=== PATIENT | male | born 1990 | race Caucasian/White ===

== ENCOUNTER 2021-03-17 08:45 | Outpatient (CLI) | payer OTHER, SELFPAY ==
--- NOTE | 2021-03-23 08:36 | WPDHOLTEREM ---
Holter/Event Monitor Holter/Event Monitor Date of procedure: 03/17/21 Holter/Event Procedure: 48 Hr Holter Monitor Indications: Syncope Conclusion: 1. 48 hour holter monitor on 03/17/21. 2. Underlying rhythm is sinus rhythm. HR range 46-112 bpm; average HR 68 bpm. 3. There are 6 premature supraventricular complexes. No supraventricular tachycardia. 4. There are 5 premature ventricular complexes. No ventricular tachycardia. 5. No sinoatrial or atrioventricular blocks. No significant pauses greater than 2 seconds. 6. Patient reports symptoms of lightheadedness and feeling worried which demonstrate sinus rhythm, HR range 70-89 bpm.
== END 2021-03-17 08:46 | disposition home or self-care (01) ==
LOC: CHSCARD 08:47
PROVIDERS: PCP Family Medicine; Visit Provider Family Medicine
DX: R55 Syncope and collapse (principal)
CPT/HCPCS: 93225; 93226

== ENCOUNTER 2021-03-23 14:04 | Outpatient (CLI) | payer OTHER, SELFPAY ==
--- NOTE | 2021-03-23 14:10 | ECHO_ITS ---
Patient Info Name: Isaac Rust Age: 31 years : 1990 Gender: Male Ht: 69 in Wt: 160 lbs BSA: 1.88 m2 HR: 57 bpm BP: 122 / 66 mmHg Technical Quality: Good Exam Date: 03/23/2021 2:57 PM Exam Location: [facility] Patient Status: Outpatient Admit Date: 03/23/2021 Staff Ordering Physician: Chip Strauss DO Undercover Operator: Phyllis Kang Attending Provider: Chip Strauss DO Referring Physician: Carlos A KOVACS; Exam Type: CA echo doppler color flow Study Info Indications R55 - Syncope and collapse Complete two-dimensional, color flow and Doppler transthoracic echocardiogram is performed. Strain analysis performed. Summary 1. Complete two-dimensional, color flow and Doppler transthoracic echocardiogram is performed. 2. Left ventricular chamber dimension is mildly enlarged. 3. Left ventricular systolic function is normal, estimated at 60-65%. 4. The left ventricular diastolic function is normal. 5. E/e' 5 is not elevated. 6. Global longitudinal strain is normal at -19.3%. 7. There is trace pulmonic regurgitation. Left Ventricle E/e' 5 is not elevated. Global longitudinal strain is normal at -19.3%. Left ventricular chamber dimension is mildly enlarged. Left ventricular systolic function is normal, estimated at 60-65%. The left ventricular diastolic function is normal. Right Ventricle Right ventricular systolic function is normal and with normal TAPSE 3.2 cm. Right ventricular chamber dimension is normal. Left Atria Left atrial chamber dimension is normal. Right Atria Right atrial chamber dimension is normal. Aortic Valve The aortic valve is trileaflet. There is no aortic valve stenosis. There is no aortic valve regurgitation. Pulmonic Valve There is trace pulmonic regurgitation. Mitral Valve There is no mitral valve stenosis. There is no mitral valve regurgitation. Tricuspid Valve There is no tricuspid valve regurgitation. Pericardium/Pleural There is no pericardial effusion. Inferior Vena Cava Normal inferior vena cava with >50% collapse upon inspiration consistent with normal right atrial pressure, 5 mmHg. Aorta The aortic root size at the sinus of Valsalva is normal. Left Ventricular Outflow Tract Name Value Normal LVOT 2D LVOT Diameter 2.0 cm LVOT Doppler LVOT Peak Velocity 102 cm/s LVOT Peak Gradient 4 mmHg LVOT Mean Gradient 3 mmHg LVOT VTI 20 cm LVOT VTI/AV VTI Ratio 1.0 LVOT Stroke Volume 67 ml Mitral Valve Name Value Normal MV Doppler MV Decel Hooker 223 cm/s2 MV PHT 88 ms MV Area (PHT) 2.5 cm2 4.0-5.0 MV Regurg
== END 2021-03-23 14:05 | disposition home or self-care (01) ==
PROVIDERS: PCP Family Medicine; Visit Provider Family Medicine
DX: Z86.79 Personal history of other diseases of the circulatory system (principal); R55 Syncope and collapse
CPT/HCPCS: 93306

== ENCOUNTER 2024-09-13 10:05 | Outpatient (CLI) | payer OTHER, SELFPAY ==
--- OUTSIDE RECORDS SUMMARY | 2024-09-13 10:11 | XMS_ITS | Clinical Summary ---
Author Organization [facility] Address [facility] [place] [address] Care Team Providers Care Almond Paste Molder Name Role Phone None, Provider MD Primary Care Provider Unavaila ble Allergies No known active allergies Medications No known medications Active Problems Problem Noted Date Diagnosed Date BMI 25.0-25.9,adult 04/24/2019 Cigarette nicotine dependence without complicati on 04/24/2019 Immunizations Immunization Administration Dates Next Due Tdap (Adacel) 07/29/2019 Family History Medical History Relation Comments None Father None Mother Relation Status Comments Father Alive Mother Alive Social History Tobacco Use Types Packs/Day Years Used Date Smoking Tobacco: Every Day Cigarettes 1 22.6 Started: 2002 Smokeless Tobacco: Current Chew Tobacco Cessation:Ready to Q uit: No; Counseling Given: Yes Comments:every once in a while Alcohol Use Standard Drinks/Week Comments Never 0 (1 standard drink = 0.6 oz pur e alcohol) AUDIT-C Answer Date Recorded Frequency of Alcohol Consumption Never 04/24/2019 Average Number of Drinks Not on file 020 Frequency of Binge Drinking Not on file 04/2019 Sex and Gender Information Value Date Recorded Sex Assigned at Male 06/20/2019 10:32 AM CDT Legal Sex Male 4:35 PM CDT Gender Identity Male 06/20/2019 10:32 AM CDT Sexual Orientation Straight 06/20/2019 10 :32 AM CDT Last Filed Vital Signs Vital Sign Reading Time Taken Comments Blood Pressure 132/79 01/21/2023 4:01 PM 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 Pulse 71 01/21/2023 4:01 PM 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 Temperature 36.8 C (98.2 F) 01/21/2023 4:01 PM 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 Respiratory Rate 19 01/21/2023 4:01 PM 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 Oxygen Saturation 97% 01/21/2023 4:01 PM 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 Inhaled Oxygen Concentration - - Weight 90.7 kg (200 lb) 01/21/2023 1:51 PM 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 Height 172.7 cm (5' 8) 01/21/2023 1:51 PM 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 Body Mass Index 30.41 01/21/2023 1:51 PM 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 Plan of Treatment Health Maintenance Due Date Last Done Comments Hepatitis C 2007 Pneumococcal Vaccine: Pediatrics (0 to 5 Years) and At-Risk Patients (6 to 49 Years) (1 of 2 - PCV) 01/08/2008 HPV Vaccines (1 - 3-dose SCDM series) 01/08/2016 Annual Physical 04/23/2020 04/24/2019 COVID-19 Vaccine ( - 2023- season) 2023 DTaP, Tdap and Td Vaccines (7 - Td or Tdap) 07/28/2029 07/29/2019, 06/11/2004, 06/21/1994, Additional history exists Hepatitis B Vaccines Completed 06/02/1999, 12/30/1998, 11/25/1998 Meningococcal B Vaccine Aged Out No l onger eligible based on patient's age to complete this topic Meningococcal Vaccine Aged Out No julieta ean eligible based on patient's age to complete this topic RSV Immunizations Under 20 Months Aged Out No longer eligible based on patient's age to complete this topic Insurance [employer] Care Teams Almond Paste Molder Relationship Specialty Start Date End Date None, Provider, PCP - General UNKNOWN PHYSICIAN SPECIALTY 01/21/23
[2024-09-13 10:23] LABS: Hematocrit 41.0 % (40.0-54.0); Hemoglobin 14.0 g/dL (14.0-18.0); Immature Granulocyte Percent A 0.3 % (0.0-0.0); Lymphocytes Absolute Auto 1.94 K/mm3 (1.10-4.50); Mean Corpuscular HGB Conc 34.1 g/dL (32-36); Mean Corpuscular Hemoglobin 30.6 pg (27.0-31.0); Mean Corpuscular Volume 89.5 fL (78.0-102.0); Nucleated Red Blood Cells Absolute Auto 0.05 K/mm3 (0.00-0.00); Nucleated Red Blood Cells Perc 0.8 % (0-0.0); Platelet Count Result 205 K/mm3 (150-420); Red Blood Count 4.58 M/mm3 (4.70-6.10); White Blood Count 6.1 K/mm3 (4.8-10.8)
[2024-09-13 11:30] LABS: Alanine Aminotransferase 30 U/L (6-50); Albumin Level 4.5 g/dL (3.5-5.1); Alkaline Phosphatase 55 U/L (38-126); Anion Gap 11 mmol/L (4-12); Aspartate Amino Transferase 27 U/L (17-59); Bilirubin,Total 0.5 mg/dL (0.2-1.3); Blood Urea Nitrogen 17 mg/dL (9-20); Calcium 9.2 mg/dL (8.4-10.2); Carbon Dioxide 25 mmol/L (22-30); Chloride 104 mmol/L (98-107); Estimated Glomerular Filt Rate > 60; Glucose 131 mg/dL (65-110); Osmolality Calculated 293 mOsm/kg (285-295); Potassium 4.1 mmol/L (3.4-5.0); Sodium 140 mmol/L (137-145); Total Protein 6.8 g/dL (6.3-8.2)
[2024-09-13 11:46] LABS: HIV 1 P24 AG Negative (Negative); HIV 1/2 AB Negative (Negative)
== END 2024-09-13 10:06 | disposition home or self-care (01) ==
PROVIDERS: PCP Family Medicine; Visit Provider Family Medicine
DX: R55 Syncope and collapse (principal); Z77.21 Contact with and (suspected) exposure to potentially hazardous body fluids
CPT/HCPCS: 36415; 80053; 85025; 87806

== ENCOUNTER 2024-09-20 10:01 | Outpatient (RCR) | payer OTHER, SELFPAY ==
--- NOTE | 2024-09-20 10:57 | OPREHPOC ---
Outpatient Therapy Plan of Care This is a Multidisciplinary Plan of Care that may contain components documented by all disciplines (PT, OT, and ST.) PT Problem 1 PT Problem #1 Knowledge Deficit PT Goal 1 Goal / Goal Update independent and compliant with HEP Target Visit 6 PT Problem 2 PT Problem #2 Pain PT Goal 1 Goal / Goal Update decrease pain at worst to 1/10 or less in the last week Target Visit 12 PT Problem 3 PT Problem #3 Impaired Strength PT Goal 1 Goal / Goal Update 5/5 bilateral hip strength 4/5 or better overall core strength Target Visit 12 PT Problem 4 PT Problem #4 Impaired Functional Mobility PT Goal 1 Goal / Goal Update 100% active lumbar rom without pain. 20 degrees or less tightness of the bilateral hamstrings. Target Visit 12 PT Problem 5 PT Problem #5 Impaired Functional Mobility PT Goal 1 Goal / Goal Update oswestry to display 10% or less functional deficits. patient to perform safe lifting of 50lbs from floor to waist without increased pain patient to transfer 50lbs from floor to table without increased pain x10 bouts Target Visit 12
--- NOTE | 2024-09-20 10:57 | PTOPEVAL1 ---
Assessment and note entered by JT File, PT Evaluation Information Assessment Status Evaluation ICD-10 Condition Codes (PT) Pain in low back M54.50 Onset 09/13/24 Subjective Information patient reports he has pain in the lower back. he had an injury 6 years ago lifting and throwing 100lbs logs. he reports he then possibly got any injury to the lower back after a chiropractic treatment. he reports for the past 6 months it has been off and on. he reports it is getting a bit better, but has not gone away completely. he reports he has increased pain with prolonged heavy lifting and twisting when carrying things for work. 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 Reported Pain Level Pain Score 2: Self Report Assessment PT Clinical Summary mr. leija is a 34 yo man who presents to skilled PT services for evaluation and treatment of lower back pain. he presents with signs and symptoms of facet arthropathy and mm hypertonicity in the lumbar paraspinals. continued skilled PT is indicated to improve his objective/functional deficits and progress towards a return to his prior level functional activity performance and quality of life. Plan of Care Interventions Electrical Stimulation,Gait Training,Hot Pack/Cold Pack,Manual Therapy,Neuro Re-education,Patient/ Caregiver Education,Therapeutic Activities, Therapeutic Exercise,Other Other Interventions dry needling PT Services Indicated Yes Treatment Frequency and 2x weekly for 12 visits Duration These treatments will address the objective and functional deficits as defined above. The patient will be advanced safely and appropriately in order for the patient to progress towards his/her prior level of function. Additional exercises will be introduced and as well as a comprehensive home exercise program upon discharge, if needed, ?to ensure carryover of functional gains achieved in the clinic. This treatment plan has been reviewed and agreement upon by the patient.
--- NOTE | 2024-10-24 09:06 | OPREHPOC ---
Outpatient Therapy Plan of Care This is a Multidisciplinary Plan of Care that may contain components documented by all disciplines (PT, OT, and ST.) PT Problem 1 PT Problem #1 Knowledge Deficit PT Goal 1 Goal / Goal Update independent and compliant with HEP Target Visit 6 Progress Met PT Problem 2 PT Problem #2 Pain PT Goal 1 Goal / Goal Update decrease pain at worst to 1/10 or less in the last week Target Visit 12 Progress Not Met PT Problem 3 PT Problem #3 Impaired Strength PT Goal 1 Goal / Goal Update 5/5 bilateral hip strength 4/5 or better overall core strength Target Visit 12 Progress Not Met PT Problem 4 PT Problem #4 Impaired Functional Mobility PT Goal 1 Goal / Goal Update 100% active lumbar rom without pain. 20 degrees or less tightness of the bilateral hamstrings. Target Visit 12 Progress Not Met PT Problem 5 PT Problem #5 Impaired Functional Mobility PT Goal 1 Goal / Goal Update oswestry to display 10% or less functional deficits. patient to perform safe lifting of 50lbs from floor to waist without increased pain patient to transfer 50lbs from floor to table without increased pain x10 bouts Target Visit 12 Progress Not Met
--- NOTE | 2024-10-24 09:06 | PTOPPROG ---
Assessment and note entered by Betina Domingo, PT Evaluation Information Assessment Status Progress ICD-10 Condition Codes (PT) Pain in low back M54.50 Onset 09/13/24 Subjective Information Isaac Rust reports his back is about the same overall. He does have some relief with PT noting the stretches help temporarily. 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 He plans to follow up with his doctor at this point. He continues to have increased pain with heavier lifting and tattooing for 6-8 hours straight. Assessment PT Clinical Summary Isaac Rust is a 34 yo man who has completed 8 skilled PT visits for lower back pain. He is reporting no overall change in his symptoms and he continues to have difficulty with lifting and tattooing for 6-8 hours at a time. He objectively demonstrates decreased and painful right lumbar lateral flexion AROM, decreased core strength, and decreased right knee strength. He has not met PT goals at this time. He will be put on hold until follow up with the MD. Plan of Care Interventions Electrical Stimulation,Hot Pack/Cold Pack,Manual Therapy,Patient/Caregiver Education,Therapeutic Exercise,Other Other Interventions dry needling PT Services Indicated No Treatment Frequency and On hold, pt plans to follow up with MD Duration These treatments will address the objective and functional deficits as defined above. The patient will be advanced safely and appropriately in order for the patient to progress towards his/her prior level of function. Additional exercises will be introduced and as well as a comprehensive home exercise program upon discharge, if needed, ?to ensure carryover of functional gains achieved in the clinic. This treatment plan has been reviewed and agreement upon by the patient.
== END 2024-12-19 23:59 | disposition home or self-care (01) ==
LOC: CHSPT 10:01
PROVIDERS: PCP Family Medicine; Visit Provider Family Medicine
DX: M54.50 Low back pain, unspecified (principal)
CPT/HCPCS: 97014; 97110; 97140; 97161; G0283

== ENCOUNTER 2024-12-14 08:52 | Outpatient (CLI) | payer OTHER, SELFPAY ==
--- OUTSIDE RECORDS SUMMARY | 2024-12-14 09:01 | XMS_ITS | Clinical Summary ---
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 Pulse 71 01/21/2023 4:01 PM RAKE OPERATOR Temperature 36.8 C (98.2 F) 01/21/2023 4:01 PM RAKE OPERATOR Respiratory Rate 19 01/21/2023 4:01 PM RAKE OPERATOR Oxygen Saturation 97% 01/21/2023 4:01 PM RAKE OPERATOR Inhaled Oxygen Concentration - - Weight 90.7 kg (200 lb) 01/21/2023 1:51 PM RAKE OPERATOR Height 172.7 cm (5' 8) 01/21/2023 1:51 PM RAKE OPERATOR Body Mass Index 30.41 01/21/2023 1:51 PM RAKE OPERATOR Plan of Treatment Health Maintenance Due Date Last Done Comments Hepatitis C 2007 Pneumococcal Vaccine: Pediatrics (0 to 5 Years) and At-Risk Patients (6 to 49 Years) (1 of 2 - PCV) 01/08/2008 HPV Vaccines (1 - 3-dose SCDM series) 01/08/2016 Annual Physical 04/23/2020 04/24/2019 COVID-19 Vaccine ( - 2024- season) 2024 Influenza Adult (#1) 2024 DTaP, Tdap and Td Vaccines (7 - Td or Tdap) 07/28/2029 07/29/2019, 06/11/2004, 06/21/1994, Additional history exists Hepatitis B Vaccines Completed 06/02/1999, 12/30/1998, 11/25/1998 Hepatitis A Vaccines Aged Out No long er eligible based on patient's age to complete this topic Meningococcal B Vaccine Aged Out No l onger eligible based on patient's age to complete this topic Meningococcal Vaccine Aged Out No julieta ean eligible based on patient's age to complete this topic RSV Immunizations Under 20 Months Aged Out No longer eligible based on patient's age to complete this topic Insurance [employer] Care Teams Feeder Switchboard Operator Relationship Specialty Start Date End Date None, Provider, MD PCP - General UNKNOWN PHYSICIAN SPECIALTY 01/21/23
[2024-12-14 10:07] LABS: Alanine Aminotransferase 36 U/L (6-50); Albumin Level 4.6 g/dL (3.5-5.1); Alkaline Phosphatase 63 U/L (38-126); Anion Gap 10 mmol/L (4-12); Aspartate Amino Transferase 27 U/L (17-59); Bilirubin,Total 0.4 mg/dL (0.2-1.3); Blood Urea Nitrogen 15 mg/dL (9-20); Calcium 9.5 mg/dL (8.4-10.2); Carbon Dioxide 27 mmol/L (22-30); Chloride 105 mmol/L (98-107); Estimated Glomerular Filt Rate > 60; Glucose 175 mg/dL (65-110); Osmolality Calculated 298 mOsm/kg (285-295); Potassium 4.4 mmol/L (3.4-5.0); Sodium 142 mmol/L (137-145); Total Protein 7.5 g/dL (6.3-8.2)
[2024-12-14 10:15] LABS: HIV 1 P24 AG Negative (Negative); HIV 1/2 AB Negative (Negative)
[2024-12-14 13:26] LABS: Hemoglobin A1C 5.0 % (<5.7)
== END 2024-12-14 08:53 | disposition home or self-care (01) ==
PROVIDERS: PCP Family Medicine; Visit Provider Family Medicine
DX: R55 Syncope and collapse (principal); M54.9 Dorsalgia, unspecified; R73.09 Other abnormal glucose; R74.01 Elevation of levels of liver transaminase levels
CPT/HCPCS: 36415; 80053; 83036; 87806

== ENCOUNTER 2025-01-03 16:17 | Outpatient (CLI) | payer OTHER, SELFPAY ==
--- NOTE | ~2025-01-03 | MR_ITS ---
EXAMINATION: MR lumbar spine wo con DATE: 01/03/2025 17:01 INDICATION: Dorsalgia TECHNIQUE: Magnetic resonance imaging (MRI) of the lumbar spine was performed without intravenous contrast. Sequences included sagittal T2-weighted FSE, sagittal T2-weighted FS FSE, sagittal T1-weighted FSE, and axial T2-weighted FSE. COMPARISON: None FINDINGS: Alignment is normal. Vertebral body heights are normal. Small central Schmorl's nodes at the superior and inferior endplates of L2 and the superior endplate of L3. Normal marrow signal. Disc desiccation, mild disc height loss and annular fissures at both L4-L5 and L5-S1. The conus medullaris terminates at L1-L2. There is normal signal in the caudal spinal cord. Paravertebral soft tissues are unremarkable. The following disc levels are specifically discussed: T12-L1: The disc does not extend beyond the endplate margin. There is mild bilateral facet joint osteoarthritis. There is no neural foraminal stenosis. There is no central canal stenosis. L1-L2: The disc does not extend beyond the endplate margin. There is mild left and minimal right facet joint osteoarthritis. There is no neural foraminal stenosis. There is no central canal stenosis. L2-L3: Disc is mildly bulging. There is mild bilateral facet joint osteoarthritis. There is mild bilateral neural foraminal stenosis. There is minimal central canal stenosis. L3-L4: Disc is mildly bulging. There is minimal bilateral facet joint osteoarthritis. There is mild bilateral neural foraminal stenosis. There is minimal central canal stenosis. L4-L5: Disc is bulging with annular fissure and moderate size central disc extrusion which measures 1.5 cm craniocaudally, 6 mm AP and 10 mm left to right. There is mild right and minimal left facet joint osteoarthritis. There is moderate right and mild to moderate left neural foraminal stenosis. There is moderate central canal stenosis along with narrowing of the lateral recesses, mild on the right and moderate on the left. L5-S1: Annular fissure and small central disc protrusion. There is mild bilateral facet joint osteoarthritis. There is mild bilateral neural foraminal stenosis. There is no central canal stenosis. IMPRESSION: 1. Mild lumbar spondylosis most notable for annular fissure and moderate size central disc extrusion at L4-L5 contributing to moderate central canal stenosis and moderate right-sided and mild to moderate left-sided neural foraminal stenosis. Reviewed, dictated and finalized at location A. STITCHER IMPRESSION: 1. Mild lumbar spondylosis most notable for annular fissure and moderate size c entral disc extrusion at L4-L5 contributing to moderate central canal stenosis and moderate right-sided and mild to moderate left-sided neural foraminal steno sis.
--- OUTSIDE RECORDS SUMMARY | 2025-01-03 16:20 | XMS_ITS | Clinical Summary ---
Author Organization [facility] Address [facility] [place] [address] Care Team Providers Care Otorhinolaryngologist Name Role Phone None, Provider MD Primary [...] Date Smoking Tobacco: Every Day Cigarettes 1 22.9 Started: 2002 Smokeless Tobacco: Current Chew Tobacco [...] Comments Blood Pressure 132/79 01/21/2023 4:01 PM FINANCE ADVISOR Pulse 71 01/21/2023 4:01 PM FINANCE ADVISOR Temperature 36.8 C (98.2 F) 01/21/2023 4:01 PM FINANCE ADVISOR Respiratory Rate 19 01/21/2023 4:01 PM FINANCE ADVISOR Oxygen Saturation 97% 01/21/2023 4:01 PM FINANCE ADVISOR Inhaled Oxygen Concentration - - Weight 90.7 kg (200 lb) 01/21/2023 1:51 PM FINANCE ADVISOR Height 172.7 cm (5' 8) 01/21/2023 1:51 PM FINANCE ADVISOR Body Mass Index 30.41 01/21/2023 1:51 PM FINANCE ADVISOR Plan of Treatment Health Maintenance Due Date [...] complete this topic Insurance [employer] Care Teams Otorhinolaryngologist Relationship Specialty Start Date End Date None, Provider, MD PCP - General UNKNOWN PHYSICIAN SPECIALTY 01/21/23
== END 2025-01-03 16:18 | disposition home or self-care (01) ==
PROVIDERS: PCP Family Medicine; Visit Provider Family Medicine
DX: M54.9 Dorsalgia, unspecified (principal); M43.06 Spondylolysis, lumbar region; M48.061 Spinal stenosis, lumbar region without neurogenic claudication
CPT/HCPCS: 72148

== ENCOUNTER 2025-01-22 11:26 | Outpatient (CLI) | payer OTHER, SELFPAY ==
--- NOTE | ~2025-01-22 | XR_ITS ---
XR lumbar spine min 4V Indication: M54.9 - Dorsalgia, unspecified Comparison: None Findings: No fracture identified, no subluxation with flexion and extension The disc heights are intact. Soft tissues unremarkable Impression: No acute abnormality. Reviewed, dictated and finalized at location P. FURNACE OPERATOR Impression: No acute abnormality.
== END 2025-01-22 11:27 | disposition home or self-care (01) ==
PROVIDERS: PCP Family Medicine; Visit Provider Neurological Surgery
DX: M54.9 Dorsalgia, unspecified (principal)
CPT/HCPCS: 72110

== ENCOUNTER 2025-02-11 07:51 | Day surgery (SDC) | payer OTHER, SELFPAY ==
[2025-01-31 13:49] VITALS: BMI 29.9
--- NOTE | ~2025-02-11 | XR_ITS ---
XR fluoroscopy no charge Indication:midline L4-5 interlaminar epidural steroid injection TECHNIQUE: Fluoroscopy used during midline L4-5 interlaminar epidural steroid injection performed by [Dilshad Bean MD] on 02/11/2025. 26 seconds of fluoroscopy with 3 fluoroscopic images captured. FINDINGS: Correlate with procedure note. IMPRESSION: Fluoroscopy used during midline L4-5 interlaminar epidural steroid injection. Reviewed, dictated and finalized at location O. OGRAPHIC ARTIST
--- NOTE | 2025-02-11 08:33 | WPDHPUPDATE1 ---
History and Physical Update Update Date/Time: 02/11/25 08:33 History and Physical has been reviewed, including an updated exam of the patient. There are NO changes in the patient's condition. Risks, benefits, and alternatives have been discussed and questions answered. Patient agrees to proceed with procedure.
--- NOTE | 2025-02-11 08:34 | P.OP_ITS ---
Procedure Note - Detailed Date of Procedure 02/11/25 Pre-op Diagnosis Lumbar Radiculopathy Post-op Diagnosis Same Procedure Performed Midline Lumbar Interlaminar Epidural Steroid Injection at L4-5 under Fluoroscopic Guidance and with Contrast Control. Surgeon Dilshad Bean MD Anesthesia Local Description of Procedure INFORMED CONSENT: Risks, benefits and alternatives to the procedure were discussed in detail with the patient who expressed explicit understanding and consent to proceed. Patient was informed verbally and in written form regarding the risks associated with the procedure including the low risk of serious infection, bleeding/bruising, allergic reaction, nerve or organ injury, p aralysis, procedural site pain or discomfort, worsening pain and/or mobility, failure to treat and/or disfigurement. The patient expressed explicit understanding and consent to proceed. All materials required for the procedure were available prior to procedure start. Site and side were marked prior to procedure and confirmed in the presence of the patient. PROCEDURE IN DETAIL: The patient was brought to the procedural suite and placed in the prone position. Patient was made comfortable with use of pillows under the head/chest, hips and ankles. Skin overlying the injection site was prepared broadly with ChloraPrep applicator and draped in a sterile manner. Aseptic technique was employed throughout. The endplates of the vertebral body at the site of interest were aligned in the AP view. Slight caudad tilt and ipsilateral oblique angulation was utilized to optimize visualization of the targeted posterior intervertebral foramen at L4-5. Local anesthesia was established by infiltration with approximately 5 mL of 2% lidocaine via a 1-1/2 inch 27-gauge needle. A 20-gauge 4-inch Tuohy epidural needle was advanced intermittently until appropriate loss of resistance to air was identified via plastic loss of resistance syringe. Lateral view was used to confirm the appropriate positioning of the needle tip within the posterior epidural space. [In the AP and lateral views, a total of 2.0 mL of Omnipaque 300 contrast medium was injected after negative aspiration for CSF, blood or other bodily fluid, showing appropriate posterior epidural spread of contrast without evidence of intravascular or intrathecal placement.] After a repeat negative aspiration for blood or other bodily fluid, a 4 mL solution containing 10 mg of dexamethasone in sterile PF Normal Saline was injected after negative repeat aspiration. Appropriate spread of the injectate was confirmed with washout of previously injected contrast. No parasthesias were elicited. Needle was removed completely intact without difficulty. Images were saved and documented in the patient chart. Patient's skin was cleaned and sterile bandage applied. The patient tolerated the procedure well. The patient was transported to the recovery area in stable condition where they were observed for an appropriate amount of time prior to discharge, without evidence of complication. The patient was instructed to avoid excessive activity for the next 48 hours, including climbing and frequent use of stairs. Showers only for 48 hours. They were instructed not to drive or operate heavy machinery for 24 hours. They are to monitor for severe headaches, fevers, chills, night sweats, erythema/swelling at the site or any other signs of infection, bleeding/bruising, bowel or bladder changes as well as new pain, weakness or numbness in the upper or lower extremity. Should they notice these changes, they are instructed to call our office immediately or report directly to the nearest Emergency Department if no answer or if after posted office hours. COMPLICATIONS: None COMMENTS: None CONTRAST WASTED: 28 mL Omnipaque 300. Complications No immediate complications Condition Stable Disposition Same day [facility] Billing Surgery - Charge Forward: Surgery Billing
[2025-02-11 08:53] VITALS: BP 125/76; PULSE 60; RESP 16; TEMP 36.6; O2SAT 99
[2025-02-11 09:23] VITALS: BP 120/69; PULSE 55; RESP 13; O2SAT 97
[2025-02-11] MEDS: DEXAMETHASONE SODIUM PHOSP/PF 10 MG/ML 1 ML VIAL (09:25)
[2025-02-11] MEDS: LIDOCAINE 1% PF INJ 5 ML VIAL INFILTRATE (09:25)
[2025-02-11 09:27] VITALS: BP 120/74; PULSE 52; RESP 13; O2SAT 97
[2025-02-11 09:31] VITALS: BP 119/81; PULSE 58; RESP 16; O2SAT 98
== END 2025-02-11 09:46 | disposition home or self-care (01) ==
PROVIDERS: PCP Family Medicine; Visit Provider Anesthesiology Pain Medicine
PROC: (CPT 62323; principal; 2025-02-11 09:30)
DX: M54.16 Radiculopathy, lumbar region (principal)
CPT/HCPCS: 62323; 99199